=== PATIENT | male | born 1995 | race Hispanic/Latino ===

== ENCOUNTER → 2022-02-19 | Day surgery (SDC) | payer OTHER ==
[~2022-02-19] MED LIST: ACETAMINOPHEN-1 EAC4 PO; BUPIVACAINE HC 0.75% PF 10ML VIAL INJ ONE; LIDOCAINE 1% W/EPINEPHRINE 20 ML VIAL ONE; NEOSTIGMINE 1 MG/ML 10ML VIAL ONE
[2022-02-19 08:40] VITALS: BP 107/76
== END | disposition home or self-care (01) ==
LOC: OR 05:29
PROVIDERS: ATTEND Plastic Surgery
DX: M62.89 Other specified disorders of muscle (principal); E66.9 Obesity, unspecified; Z01.812 Encounter for preprocedural laboratory examination; Z20.822 Contact with and (suspected) exposure to COVID-19
CPT/HCPCS: 0223U; 21933; 36415; 88304; C1713; J0690; J2710